=== PATIENT | male | born 2000 | race Caucasian/White ===

== ENCOUNTER 2022-11-02 13:31 | Emergency (ER) | payer OTHER, SELFPAY ==
[2022-11-02 13:43] VITALS: BP 131/73; PULSE 105; RESP 16; TEMP 37.4; O2SAT 99
--- NOTE | 2022-11-02 14:43 | ED.GENADULT ---
HPI - General Adult General Chief complaint: Extremity Injury, Upper Stated complaint: injured finger left hand Source: patient Mode of arrival: ambulatory Limitations: no limitations History of Present Illness HPI narrative: Patient presents for evaluation of a laceration to the left index finger. Symptom onset just prior to arrival. He cut himself on a mandoline. He states the pain has improved since the time of his arrival. He denies loss of range of motion or paresthesias. Last tetanus was in April of this year. He is not diabetic. He does not smoke. He is right-hand dominant. Related Data Home Medications Medication Instructions Recorded Confirmed albuterol 11/02/22 Allergies Allergy/AdvReac Type Severity Reaction Status Date / Time No Known Allergies Allergy Verified 11/02/22 13:36 Review of Systems Review of Systems: CONSTITUTIONAL: Denies fever, chills, or sweats. EYES: Denies visual changes, redness, or discharge. ENT: Denies rhinorrhea, congestion, sore throat, or otalgia. CARDIOVASCULAR: Denies chest pain, palpitations, or edema. RESPIRATORY: Denies cough or dyspnea. GASTROINTESTINAL: Denies abdominal pain, nausea, vomiting, or diarrhea. GENITOURINARY: Denies dysuria or hematuria. SKIN: Reports laceration to left index finger. MUSCULOSKELETAL: Denies back pain, joint pain, or myalgia. NEUROLOGIC: Denies headache, numbness, dizziness, or weakness. PSYCHIATRIC: Denies anxiety or depression. [facility] Past Medical History Medical History Asthma Surgical History Surgical History Hx of tonsillectomy Family History Family History Father Hypertension Grandparent Hypertension Carcinoma of colon, Onset Age: 84 Mother Patient's mother is in good health Social History Social History Smoking status: Never smoker Second hand tobacco smoke exposure: No Alcohol intake: never Substance use: never Gender identity (if verbalized by the patient): Male Spiritual care concerns: No Exam Narrative: GENERAL: Well-appearing, well-nourished, and in no acute distress. HEAD: Normocephalic, atraumatic. EYES: PERRLA and EOMI. ENT: Nares clear, no rhinorrhea or epistaxis. Mucous membranes moist. Oropharynx without tonsillar hypertrophy exudate or other lesions. Bilateral TMs pearly price nonbulging NECK: Supple. No adenopathy or masses. No carotid bruits or JVD CHEST: Clear to auscultation. No respiratory distress. No wheezes rales or rhonchi HEART: Regular rate and rhythm. No murmur heard. Normal peripheral pulses. ABDOMEN: Soft, nontender, nondistended, normal active bowel sounds. EXTREMITIES: Normal range of motion. No edema. SKIN: Approximately 1 cm laceration to distal phalanx of 2nd digit of left hand in flap formation. NEURO: No focal deficits. Alert and oriented x3. PSYCH: Normal mood and affect. Course Course Emergency Course: This is a 21-year-old male who presented for evaluation of laceration to the left index finger. Wound was cleansed thoroughly laceration was closed with 2 sutures and dermabond which was only applied to small portion of end of laceration. Pt tolerated well. Advised on wound care. Follow up with primary provider and go to the ER for evidence of infection. Pt in agreement with plan of care. Level of Care: Express Care Visit Vital Signs Vital signs: Vital Signs Temperature 37.4 C 11/02/22 13:43 Pulse Rate 105 H 11/02/22 13:43 Respiratory Rate 16 11/02/22 13:43 Blood Pressure 131/73 11/02/22 13:43 Pulse Oximetry 99 11/02/22 13:43 Oxygen Delivery Room Air 11/02/22 13:43 Temperature 37.4 C 11/02/22 13:43 Pulse Rate 105 H 11/02/22 13:43 Respiratory Rate 16 11/02/22 1
== END 2022-11-02 15:35 | disposition home or self-care (01) ==
PROVIDERS: Emergency Provider Nurse Practitioner; PCP Internal Medicine
DX: S61.211A Laceration without foreign body of left index finger without damage to nail, initial encounter (principal); W27.8XXA Contact with other nonpowered hand tool, initial encounter; J45.909 Unspecified asthma, uncomplicated
CPT/HCPCS: 12001; 99212; G0463

== ENCOUNTER 2023-11-28 11:00 | Emergency (ER) | payer OTHER, SELFPAY ==
[2023-11-28 11:11] VITALS: BP 123/82; PULSE 150; RESP 16; TEMP 38.3; O2SAT 99
--- NOTE | 2023-11-28 11:19 | ED.SKABFB ---
HPI - Skin/Abscess/Foreign Bdy General Chief complaint: Skin/Abscess/Foreign Body Stated complaint: Cyst Time Seen by Provider: 11/28/23 11:19 Source: patient, RN notes reviewed and old records reviewed Mode of arrival: ambulatory Limitations: no limitations History of Present Illness HPI narrative: 22-year-old male to Express Care for complaint of a pilonidal cyst. Patient reports 1st being diagnosed 4 years ago through his PCP office. Patient reports being treated with antibiotics for infection twice through his PCP for this same complaint. Patient reports pain 7/10, worse while sitting. Patient also complaining of generalized chills and myalgias that began overnight. Patient tachycardic and febrile in triage. Patient denies, vomiting, dizziness, allergies. Patient able to tolerate fluids by mouth. Respirations even and nonlabored. Patient in no acute distress. Related Data Home Medications Medication Instructions Recorded Confirmed albuterol sulfate 90 mcg/actuation 1 inh inhalation QID PRN DYSPENA 11/28/23 11/28/23 aerosol inhaler Allergies Allergy/AdvReac Type Severity Reaction Status Date / Time No Known Allergies Allergy Verified 11/28/23 11:25 Review of Systems Review of Systems: All systems reviewed & are unremarkable except as noted in HPI and below Constitutional: Constitutional: Reports as per HPI, Reports body ache(s) and Reports chills Eyes: Eyes: Reports no additional eye complaints ENT: Reports system reviewed and no additional complaints, except as documented Cardiovascular: Cardiovascular: Reports no additional cardiovascular complaints, Denies chest pain and Denies dyspnea Respiratory: Respiratory: Reports no additional respiratory complaints, Denies cough and Denies dyspnea Musculoskeletal: Musculoskeletal: Reports no additional musculoskeletal complaints Integumentary/Breasts: Skin/Breast: Reports as per HPI and Reports wounds ( pilonidal cyst) Neurologic: Reports system reviewed and no additional complaints, except as documented Psychiatric: Psychiatric: Reports no additional psychiatric complaints [facility] Past Medical History Medical History Asthma Surgical History Surgical History Hx of tonsillectomy Family History Family History Father Hypertension Grandparent Hypertension Carcinoma of colon, Onset Age: 84 Mother Patient's mother is in good health Social History Social History Smoking status: Never smoker Second hand tobacco smoke exposure: No Alcohol intake: never Substance use: never Gender identity (if verbalized by the patient): Male Spiritual care concerns: No Comments At the time of my signature, I reviewed and agree with the nursing past medical, surgical, social, and family history. There is no relevant family history pertinent to the patient complaint. Exam Const: General: cooperative, no acute distress, alert, ill appearing acutely, tired appearing, uncomfortable and well nourished Nutritional Appearance: well nourished Orientation/consciousness: patient oriented x3 Limitations: no limitations HENMT: Head: normal to inspection Ears: external ears normal Face/Nose/Sinus: Normal external nose present, Normal nares present, normal facial exam, No erythema and No edema Face and sinus: normal facial exam, no erythema and no edema Mouth: Yes Normal oral and palatal mucosa present Eyes: General: appearance normal, both eyes and all related structures Neck: Neck: normal visual inspection, full ROM and no meningeal signs Lymphatic: no lymphadenopathy noted and no lymphedema noted Chest: Chest palpation & inspection: normal inspection of the chest Resp: Effort & Inspection: normal respiratory eff
== END 2023-11-28 11:59 | disposition short-term general hospital (02) ==
PROVIDERS: Emergency Provider Nurse Practitioner Family; PCP Internal Medicine
DX: L05.01 Pilonidal cyst with abscess (principal); J45.909 Unspecified asthma, uncomplicated
CPT/HCPCS: 99212; G0463

== ENCOUNTER 2023-11-28 12:19 | Inpatient (IN) | payer OTHER, SELFPAY ==
[2023-11-28 13:06] VITALS: BP 97/53; PULSE 126; RESP 18; TEMP 38.1; O2SAT 98
[2023-11-28] MEDS: HYDROcodone/acetaminophen (*CRX) 5-325 MG TABLET 1 TAB PO (13:59)
[2023-11-28] MEDS: SODIUM CHLORIDE 0.9% IV 2,400 ML/1,000 ML BAG 999 ML IV CONT ×2 (14:14→15:30)
[2023-11-28] MEDS: LIDO 1%/EPINEPHRINE 1:100,000 20 ML VIAL 10 ML INFILTRATE (14:18)
--- NOTE | 2023-11-28 14:29 | ED.SKABFB ---
HPI - Skin/Abscess/Foreign Bdy General Chief complaint: Skin/Abscess/Foreign Body Stated complaint: pylonidal cyst Time Seen by Provider: 11/28/23 13:35 History of Present Illness HPI narrative: patient is a 22-year-old male who presents ER with pilonidal abscess. Has history of pilonidal multiple years ago. It was drained in an office setting. He reports pain returned over the last 4 days. He has developed fever. He has had no drainage. He has not been on any antibiotics. Upon presentation in the ER patient has a blood pressure in the 90s and is tachycardic and febrile. Related Data Home Medications Medication Instructions Recorded Confirmed albuterol sulfate 90 mcg/actuation 1 inh inhalation QID PRN DYSPENA 11/28/23 11/28/23 aerosol inhaler Allergies Allergy/AdvReac Type Severity Reaction Status Date / Time No Known Allergies Allergy Verified 11/28/23 18:41 Review of Systems Review of Systems: All systems reviewed & are unremarkable except as noted in HPI and below Constitutional: Constitutional: Denies chills, Reports fatigue and Reports fever(s) ENT: Reports system reviewed and no additional complaints, except as documented Cardiovascular: Cardiovascular: Reports no additional cardiovascular complaints Respiratory: Respiratory: Reports no additional respiratory complaints Musculoskeletal: Musculoskeletal: Reports no additional musculoskeletal complaints Integumentary/Breasts: Comments: Pilonidal abscess [facility] Past Medical History Medical History Asthma Surgical History Surgical History Hx of tonsillectomy Family History Family History Father Hypertension Grandparent Hypertension Carcinoma of colon, Onset Age: 84 Mother Patient's mother is in good health Social History Social History Smoking status: Never smoker Second hand tobacco smoke exposure: No Alcohol intake: never Drinks per week: 4 Substance use: never Do You Feel Safe in your Home?: Yes Lack of Transportation: No Lack of Food: Never True Current Housing: I Have Housing Concerned About Future Housing: No Difficulty Paying Gas/Electric Bills: No Difficulty Paying for Meds: No Currently Unemployed: No Education: Associate Degree Difficulty w/ Childcare or Family Care: No Gender identity (if verbalized by the patient): Male Spiritual care concerns: No Exam Narrative: GENERAL: Well-appearing, well-nourished, and in no acute distress. HEAD: Normocephalic, atraumatic. ENT: Mucous membranes moist. CHEST: Clear to auscultation. No respiratory distress. HEART: Regular rate and rhythm. Normal peripheral pulses. EXTREMITIES: Normal range of motion. No edema. SKIN: Warm, dry, no rash. swelling over the gluteal cleft with small defect consistent with scarring from previous opening a pilonidal. No overt cellulitis. NEURO: Alert and oriented x3. PSYCH: Normal mood and affect. Course Course Emergency Course: Patient given 30 milliliter/kilogram bolus of IV fluid. Blood was cultured as was the wound. Patient started on Zosyn at the recommendation of General surgery. The wound was incise and drain. Patient will be admitted for observation. Vital Signs Vital signs: Vital Signs Temperature 100.6 F H 11/28/23 13:06 Pulse Rate 126 H 11/28/23 13:06 Respiratory Rate 18 11/28/23 13:06 Blood Pressure 97/53 L 11/28/23 13:06 Pulse Oximetry 98 11/28/23 13:06 Temperature 98.7 F 11/28/23 20:06 Pulse Rate 106 H 11/28/23 20:06 Respiratory Rate 18 11/28/23 20:06 Blood Pressure 117/73 11/28/23 20:06 Pulse Oximetry 100 11/28/23 20:06 Oxygen Delivery Room Air 11/28/23 17:24 Procedures Abscess I/D pilonidal: Date of Incision:
[2023-11-28 14:34] LABS: Basophils Percent Auto 0.4 % (0.2-1.2); Eosinophils Percent Auto 0.1 % (0-4.4); Hematocrit 38.8 % (42.0-52.0); Hemoglobin 13.1 g/dL (14.0-18.0); Immature Granulocyte Absolute 0.04 K/mm3 (0.00-0.031); Immature Granulocyte Percent A 0.4 % (0-0.5); Lymphocytes Absolute Auto 0.84 K/mm3 (0.9-3.2); Lymphocytes Percent Auto 8.4 % (18.3-44.2); Mean Corpuscular HGB Conc 33.8 g/dl (32-36); Mean Corpuscular Hemoglobin 31.4 pg (26-34); Monocytes Absolute Auto 0.8 K/mm3 (0.1-0.6); Monocytes Percent Auto 7.5 % (2.6-8.5); Neutrophils Absolute Auto 8.3 K/mm3 (1.3-6.7); Neutrophils Percent Auto 83.2 % (45.5-73.1); Platelet Count Result 170 k/mm3 (150-375); Red Blood Count 4.17 M/mm3 (4.6-6.20); Red Cell Distribution Width 12.8 % (11.5-14.5)
[2023-11-28 14:43] LABS: Lactic Acid Reflex 0.7 mmol/L (0.7-2.0)
[2023-11-28 14:44] LABS: INR 1.2; Partial Thromboplastin Time 28.3 Seconds (22.3-36.8); Prothrombin Time 15.1 Seconds (11.1-14.7)
[2023-11-28 14:47] LABS: Alanine Aminotransferase 14 U/L (6-50); Albumin Level 4.4 g/dL (3.5-5.1); Alkaline Phosphatase 73 U/L (38-126); Anion Gap 11 mmol/L (4-12); Aspartate Amino Transferase 19 U/L (17-59); Bilirubin,Total 0.9 mg/dL (0.2-1.3); Blood Urea Nitrogen 15 mg/dL (9-20); Calcium 8.9 mg/dL (8.4-10.2); Carbon Dioxide 25 mmol/L (22-30); Chloride 102 mmol/L (98-107); Estimated CRCL calculation 132 ml/min; Estimated Glomerular Filt Rate > 60; Glucose 78 mg/dL (65-110); Potassium 3.8 mmol/L (3.4-5.0); Sodium 138 mmol/L (137-145)
[2023-11-28 15:34] VITALS: BP 120/61; PULSE 129; RESP 18; TEMP 37.8; O2SAT 97
--- NOTE | 2023-11-28 15:35 | PC.NURSE ---
I & D per Dr. Owusu, wound packed with Iodaform gauze, [address] at site. Pt tolerated well
[2023-11-28 15:45] VITALS: BP 116/60; PULSE 127; RESP 20; TEMP 37.8; O2SAT 100
[2023-11-28] MEDS: PIPERACILLN/TAZ 3.375GM/NS50ML 3.375 GM/50 ML BAG IVPB ×2 (16:32→23:25)
--- NOTE | 2023-11-28 16:47 | PC.NURSE ---
No change in assessment. Pt resting prone position for comfort.
[2023-11-28 16:51] VITALS: BP 112/59; PULSE 112; RESP 20; TEMP 37.8; O2SAT 97
--- NOTE | 2023-11-28 16:57 | PC.NURSE ---
Pt received total of 2400 normal saline sepsis protocol fluids. RN consulted Collin RN concerning difficulty in charting exact intake. Instructed to write a note
--- NOTE | 2023-11-28 17:24 | ADMGEN ---
This patient, Raulito Epstein, was admitted to Medical Room 241-01. Patient/family oriented to hospital policies and general routines including ID bracelet, bed and alarms, visiting hours, pain management, procedures, bathroom and other care routines, personal items, smoking policy, room service/diet, and visiting hours. Information on how to activate the Rapid Response Team has been discussed. Patient/Family are encouraged to report perceived risks to care and to ask questions if they do not understand what they are told or what they should do.
[2023-11-28 17:32] VITALS: BMI 24.5
--- NOTE | 2023-11-28 18:28 | PM.IMHP ---
H&P: HPI History of Present Illness Date/Time: 11/28/23 18:28 Chief Complaint: Pilonidal abscess and cellulitis Narrative: Patient is a 22-year-old male who presented to the emergency room with a 4 day history of worsening pain in the upper midline gluteal cleft. He had a known pilonidal cyst and actually was seen as an outpatient by Dr. Oliveira a couple years ago. He has not had definitive management of his pilonidal cyst. He had some subjective fevers and chills at home earlier today. In the emergency room he was febrile with tachycardia and relative hypotension. Received an IV fluid bolus in the emergency room and stabilized. He is still mildly tachycardic. He met criteria for sepsis and admission. He did have incision and drainage by the emergency room physician of the pilonidal abscess. It was packed and he was admitted to the surgical floor. He was started on Zosyn for IV antibiotics. Review of Systems Review of Systems: The remainder of the review of systems to include constitutional, HEENT, cardiovascular, respiratory, GI, , integumentary, musculoskeletal, endocrine, immunologic, hematologic, psychiatric, and neurologic are all negative except for which is mentioned above in the HPI. [facility] Past Medical History Medical History Asthma Surgical History Surgical History Hx of tonsillectomy Family History Family History Father Hypertension Grandparent Hypertension Carcinoma of colon, Onset Age: 84 Mother Patient's mother is in good health Social History Social History Smoking status: Never smoker Second hand tobacco smoke exposure: No Alcohol intake: never Drinks per week: 4 Substance use: never Do You Feel Safe in your Home?: Yes Lack of Transportation: No Lack of Food: Never True Current Housing: I Have Housing Concerned About Future Housing: No Difficulty Paying Gas/Electric Bills: No Difficulty Paying for Meds: No Currently Unemployed: No Education: Associate Degree Difficulty w/ Childcare or Family Care: No Gender identity (if verbalized by the patient): Male Spiritual care concerns: No Meds Home Medications and Allergies Home Medications Medication Instructions Recorded Confirmed Type albuterol sulfate 90 mcg/actuation 1 inh inhalation QID PRN DYSPENA 11/28/23 11/28/23 History aerosol inhaler Allergies Allergy/AdvReac Type Severity Reaction Status Date / Time No Known Allergies Allergy Verified 11/28/23 11:25 Vital Signs Vital Signs - 24 hr 11/28/23 13:06 11/28/23 15:34 11/28/23 15:45 Temperature 38.1 C H 37.8 C H 37.8 C H Pulse Rate 126 H 129 H 127 H Respiratory Rate 18 18 20 Blood Pressure 97/53 L 120/61 116/60 Pulse Oximetry 98 97 100 11/28/23 16:51 Temperature 37.8 C H Pulse Rate 112 H Respiratory Rate 20 Blood Pressure 112/59 L Pulse Oximetry 97 Exam Const: General: comfortable and no acute distress HENMT: Ears: TM's normal bilaterally Face/Nose/Sinus: Normal nares present Mouth: Yes moist mucous membranes Eyes: General: appearance normal, both eyes and all related structures Sclera: sclerae normal Pupils: Equal, round and reactive pupils present EOM: EOMs intact bilaterally Neck: Neck: supple and no JVD Resp: Effort & Inspection: normal respiratory effort Auscultation: clear to auscultation bilaterally Cardio: Rate: regular rate and tachycardic GI: GI Palp: Yes Soft to palpation, No Firmness to palpation present (GI), No Tenderness to palpation present (GI), No Guarding due to palpation present (GI) and No Hernia present Skin: General skin exam: normal color Other: In the gluteal cleft patient has a open draining abscess which the emergency room physician incised and drained. The
[2023-11-28] MEDS: SODIUM CHLORIDE 0.9% IV 1,000 ML 125 ML IV CONT (18:45)
[2023-11-28 20:06] VITALS: BP 117/73; PULSE 106; RESP 18; TEMP 37.1; O2SAT 100
[2023-11-29 04:04] VITALS: BP 117/71; PULSE 109; RESP 20; TEMP 36.8; O2SAT 99
[2023-11-29] MEDS: SODIUM CHLORIDE 0.9% IV 1,000 ML 125 ML IV CONT ×2 (04:29→12:28)
[2023-11-29 05:36] LABS: Basophils Percent Auto 0.4 % (0.2-1.2); Eosinophils Absolute Auto 0.1 K/mm3 (0-0.3); Eosinophils Percent Auto 1.6 % (0-4.4); Hematocrit 35.2 % (42.0-52.0); Hemoglobin 11.5 g/dL (14.0-18.0); Immature Granulocyte Absolute 0.02 K/mm3 (0.00-0.031); Immature Granulocyte Percent A 0.2 % (0-0.5); Lymphocytes Absolute Auto 1.39 K/mm3 (0.9-3.2); Lymphocytes Percent Auto 16.9 % (18.3-44.2); Mean Corpuscular HGB Conc 32.7 g/dl (32-36); Mean Corpuscular Hemoglobin 31.3 pg (26-34); Mean Corpuscular Volume 95.9 fl (80-100); Mean Platelet Volume 10.3 fl (7.4-10.4); Monocytes Absolute Auto 0.8 K/mm3 (0.1-0.6); Monocytes Percent Auto 10.1 % (2.6-8.5); Neutrophils Absolute Auto 5.8 K/mm3 (1.3-6.7); Neutrophils Percent Auto 70.8 % (45.5-73.1); Platelet Count Result 143 k/mm3 (150-375); Red Blood Count 3.67 M/mm3 (4.6-6.20); White Blood Count 8.2 K/mm3 (4.5-10.0)
[2023-11-29 05:46] LABS: Alanine Aminotransferase 11 U/L (6-50); Albumin Level 3.5 g/dL (3.5-5.1); Alkaline Phosphatase 58 U/L (38-126); Anion Gap 6 mmol/L (4-12); Aspartate Amino Transferase 20 U/L (17-59); Bilirubin,Total 0.7 mg/dL (0.2-1.3); Blood Urea Nitrogen 11 mg/dL (9-20); Calcium 8.3 mg/dL (8.4-10.2); Carbon Dioxide 25 mmol/L (22-30); Chloride 106 mmol/L (98-107); Estimated CRCL calculation 149 ml/min; Estimated Glomerular Filt Rate > 60; Glucose 97 mg/dL (65-110); Potassium 3.8 mmol/L (3.4-5.0); Sodium 137 mmol/L (137-145)
[2023-11-29] MEDS: PIPERACILLN/TAZ 3.375GM/NS50ML 3.375 GM/50 ML BAG IVPB ×3 (05:59→18:50)
[2023-11-29 08:55] VITALS: O2SAT 98
--- NOTE | 2023-11-29 11:19 | WPDPN ---
Progress Note: A&P Assessment and Plan (1) Pilonidal cyst with abscess: Code(s): L05.01 - Pilonidal cyst with abscess Status: Acute Assessment and Plan: Patient sepsis parameters are better. He has much less pain. Unfortunately the small incision made on initial incision drainage emergency room was not adequate to widely drain the abscess. He still is getting quite a bit of purulent drainage. He will need to go to the operating room tomorrow for formal incision and drainage of the abscess in the operating room with wider drainage and a larger incision to aid with packing of the abscess cavity properly. Keep on IV antibiotics for now. Await culture results. He can have a diet today and be made NPO in the morning again. Subjective Date/time seen: 11/29/23 11:19 Interval history: Patient feels much better today in regards to the pain from his pilonidal abscess. It continues to drain. The cover dressing was changed twice last evening. White blood count is 8000 today. No fever now. Tachycardia is improved he is now no low 100s around 105 for his heart rate. He remains on Zosyn for IV antibiotics. Wound cultures from initial incision and drainage of the abscess is pending. Exam Skin: Other: In the upper midline gluteal cleft the 0.5cm incision made by the emergency room physician is still open. There is still copious amounts of bloody purulent fluid draining. Redness is improved but there is still significant induration. Objective Data Vital Signs Vital Signs: Vital Signs - 24 hr 11/28/23 13:06 11/28/23 15:34 11/28/23 15:45 Temperature 38.1 C H 37.8 C H 37.8 C H Pulse Rate 126 H 129 H 127 H Respiratory Rate 18 18 20 Blood Pressure 97/53 L 120/61 116/60 Pulse Oximetry 98 97 100 Oxygen Delivery 11/28/23 16:51 11/28/23 17:24 11/28/23 20:06 Temperature 37.8 C H 37.1 C Pulse Rate 112 H 106 H Respiratory Rate 20 18 Blood Pressure 112/59 L 117/73 Pulse Oximetry 97 100 Oxygen Delivery Room Air 11/28/23 20:24 11/29/23 04:04 11/29/23 08:55 Temperature 36.8 C Pulse Rate 109 H Respiratory Rate 20 Blood Pressure 117/71 Pulse Oximetry 99 98 Oxygen Delivery Room Air Room Air 11/29/23 08:30 Temperature Pulse Rate Respiratory Rate Blood Pressure Pulse Oximetry Oxygen Delivery Room Air Intake/Output Intake/Output: Intake & Output 11/26/23 11/27/23 11/28/23 11/29/23 23:59 23:59 23:59 23:59 Intake Total 340 1240 Balance 340 1240 Meds/Results Medications: Active Medications Generic Name Dose Route Start Last Admin Trade Name Freq PRN Reason Stop Dose Admin Acetaminophen 650 mg 11/28/23 16:09 Acetaminophen 325 Mg Tablet PO Q4H PRN Mild Pain (1-3) or Fever Hydrocodone Bitart/Acetaminophen 1 tab 11/28/23 16:09 Hydrocodone/Acetaminophen (*Crx) 5-325 Mg Tablet PO Q4H PRN Pain Rated 4-6 Piperacillin/Tazobactam/Dextrose 3.375 gm in 50 mls @ 100 mls/hr 11/28/23 23:00 11/29/23 06:29 Zosyn 3.375 Gm/Ns 50 Ml IVPB Infused Q6HR MELI Infusion Sodium Chloride 1,000 mls @ 125 mls/hr 11/28/23 16:10 11/29/23 04:29 Normal Saline Iv IV CONT 125 mls/hr .Q8H MELI Administration Morphine Sulfate 4 mg 11/28/23 16:09 Morphine Sulfate (*Crx) 4 Mg/Ml Inj IV PUSH Q2H PRN Pain Rated 7-10 Ondansetron HCl 4 mg 11/28/23 16:09 Ondansetron Inj 4 Mg/2 Ml Vial IV PUSH Q4H PRN Nausea Labs Labs: Laboratory Results - last 24 hr 11/28/23 11/29/23 14:20 04:38 WBC 10.0 8.2 RBC 4.17 L 3.67 L Hgb 13.1 L 11.5 L Hct 38.8 L 35.2 L MCV 93.0 95.9 MCH 31.4 31.3 MCHC 33.8 32.7 RDW 12.8 13.0 Plt Count 170 143 L MPV 10.0 10.3 Immature Gran % (Auto) 0.4 0.2 Neut % (Auto) 83.2 H 70.8 Lymph % (Auto) 8.4 L 16.9 L Barbour % (Auto) 7.5 10.1 H Eos % (Auto) 0.1 1.6 Baso % (Auto) 0.4 0.4 Lymph # (Auto) 0.84 L 1.39 Barbour # (Auto) 0.8 H 0.8 H Eos # (Auto)
[2023-11-29 13:59] VITALS: BP 120/73; PULSE 100; RESP 16; TEMP 36.4; O2SAT 100
[2023-11-29] MEDS: ACETAMINOPHEN 325 MG TABLET 650 MG PO (21:28)
[2023-11-29 22:00] VITALS: BP 126/73; PULSE 90; RESP 20; TEMP 36.7; O2SAT 99
[2023-11-30] VITALS (9 sets, daily range): BP systolic 102–124; BP diastolic 62–81; PULSE 77–106; RESP 12–20; TEMP 36.1–36.7; O2SAT 99–100
[2023-11-30] MEDS: PIPERACILLN/TAZ 3.375GM/NS50ML 3.375 GM/50 ML BAG IVPB ×2 (00:20→06:27)
[2023-11-30] MEDS: SODIUM CHLORIDE 0.9% IV 1,000 ML 125 ML IV CONT (00:20)
--- NOTE | 2023-11-30 08:08 | WPDHPUPDATE1 ---
History and Physical Update Update Date/Time: 11/30/23 08:08 History and Physical has been reviewed, including an updated exam of the patient. There are NO changes in the patient's condition. Risks, benefits, and alternatives have been discussed and questions answered. Patient agrees to proceed with procedure.
--- NOTE | 2023-11-30 08:26 | PC.NURSE ---
PT off unit for Surgery
[2023-11-30] MEDS: LACTATED RINGERS 1,000 ML 30 ML IV CONT (09:09)
--- NOTE | 2023-11-30 09:15 | P.OP_ITS ---
Procedure Note - Detailed Date of Procedure 11/30/23 Pre-op Diagnosis Sepsis/Pilonidal Cyst Post-op Diagnosis Same Procedure Performed Incision and drainage of pilonidal abscess Surgeon Steffen Staples MD Curtain Inspector OMER Gonzalez Anesthesia General Indications Patient is a 22-year-old white male presented to the emergency with a 4 day history of worsening pain over his tailbone. He was found have a very large pilonidal abscess and initial incision drainage was performed in the emergency room by the emergency room physician. Copious amounts of pus drained. Small amount of packing was placed. He was then seen on the floor in September was difficult to repack to the small incision. He continues to have purulent drainage coming from the wound and so he presents now for formal incision and drainage of the abscess in the operating room under an anesthetic. Findings Patient had large pilonidal abscess measuring about 4x3cm. It was a simple abscess without tracking sinus tracts. It did extend superior to the top of the upper midline gluteal cleft and upper buttock region. Description of Procedure After informed consent was obtained patient brought to the operating room was pl aced on the right lateral decubitus position on the operating table and IV sedation was administered by anesthesia. The area the upper midline gluteal cleft and lower back region was then prepped and draped usual sterile fashion. A time-out was then performed correctly identifying the patient as well as procedure to be performed. He was already on scheduled IV antibiotics. I then proceeded to anesthetize the area utilizing 1% lidocaine mixed with 0.5% Marcaine with epinephrine. An 11 blade scalpel was then used to open the existing incision until was 3cm in length. The the incision extended cephalad from the initial incision. I placed my finger into the abscess cavity and a little bit more pus drained. I then palpated the whole extent of the abscess cavity is approximately 4x3cm. There is no tracking of the abscess cavity lateral. It seemed to track mostly cephalad towards the upper midline gluteal cleft and the upper buttock regions. I then irrigated out the abscess counts copious amounts sterile saline solution. Hemostasis in the skin edges was achieved electrocautery. I then packed the wound tightly with half-inch iodoform gauze. Hemostasis was good. The patient tolerated the procedure well no complications. All sponges, needles, and instrument counts were correct at the end procedure. EBL was _5__cc. The patient was awakened and taken to recovery in stable and satisfactory condition. Implants None Estimated Blood Loss 5 Drains No Packing Yes (1/2inch iodoform gauze) Pathology None sent Complications No immediate complications Condition Stable Disposition PACU [facility] Billing Surgery - Charge Forward: Surgery Billing
[2023-11-30] MEDS: LIDO 1%/EPINEPHRINE/PF 1:200,000 30 ML VIAL 60 ML XX (09:16)
--- NOTE | 2023-11-30 09:28 | PM.DS ---
DS: Admitting Diagnosis Discharge Date November 30, 2023 Admitting Diagnosis Pilonidal abscess with sepsis DS: Discharge Diagnosis Discharge Diagnosis (1) Pilonidal cyst with abscess: Code(s): L05.01 - Pilonidal cyst with abscess Status: Acute (2) Sepsis: Code(s): A41.9 - Sepsis, unspecified organism Status: Acute DS: Summary Hospital Course Reason for hospitalization: Pilonidal abscess with sepsis Hospital Course: Patient presented to the emergency room with a four-day history of worsening pain in his tailbone. He had a prior history of a pilonidal cyst a couple years ago. Upon evaluation emergency room his mood have a large fluctuant area in his tailbone consistent with a pilonidal abscess. He was also tachycardic and had some relative hypotension. He met criteria for sepsis protocol was me started on IV antibiotics and IV fluid bolus was given to the patient which responded to. The emergency room physician performed a limited incision and drainage of the abscess and copious amounts of pus drained. Culture of the pus was sent to microbiology. Patient was admitted to the surgical floor and kept on Zosyn for IV antibiotics. I then sewn evaluate the patient patient had a small incision which made it difficult to try to pack the wound and there was copious amounts of pus stool draining from the wound. He was kept on IV antibiotics and his white blood cell count was still normal around 10,000. It decreased the next day he was afebrile. Because of the continued drainage of pus from the difficulty in trying to pack the wound the small incision he was then taken to the operating room for formal incision and drainage of the abscess cavity under a anesthetic. This was done and it allowed me to then make a 3cm incision to open toe abscess cavity. Details of procedure can be found his operative note. Postoperatively he was transferred to the recovery room which did well and was transferred back to surgical floor with packing in place. He was doing very well with minimal pain. He was tolerating a regular diet. He was then switched from Zosyn for IV antibiotics to Augmentin for antibiotic therapy. He is doing well enough on the of his procedure that he can be discharged home with instructions for wound packing and an oral antibiotic. Status at Discharge Cognitive/behavioral status at discharge: Normal Functional status at discharge: independent ambulation Overall status at discharge: patient is back to baseline Time Spent with Patient Time attestation: Total time spent providing and/or coordinating discharge services: Time spent: Less than 30 minutes Exam Skin: Other: Upper midline gluteal cleft with 3cm midline incision leading to a 4cm abscess cavity in the subcutaneous tissues. Wound is now clean without any pus drainage. Resolving induration minimal redness. DS: Data Data Completed and Pending Labs on day of discharge: Preliminary micro results at discharge 11/28/23 16:35 Wound Culture - Preliminary Abscess 11/28/23 16:35 Blood Culture - Preliminary Blood 11/28/23 16:35 Blood Culture - Preliminary Blood Discharge Plan Discharge Attending physician on discharge: Steffen Staples Discharging Clinician: Steffen Staples Anticipated Discharge Date/Time: 11/30/23 15:00 Patient Disposition: Home, Self-Care Activity: may shower Diet: regular Wound Care Instructions: other - see discharge instructions Discharge Instructions: Patient leave dressing in place for today. May remove the top portions of the dressing and then get the packing wet in a shower and then removed the packing. 1/2inch iodoform gauze to be repacked into the abscess cavity right patient's family member. Cover the wound with dry gauze. Change packing once a day. Discharge patient home with Q-tips, 1/2inch iodoform gauze, 4x4 gauze, ABD pads, and Medipore tape. Patient to call office and make appointm
--- NOTE | 2023-11-30 09:40 | PC.NURSE ---
Pt returned to unit
== END 2023-11-30 14:32 | disposition home or self-care (01) | DRG 602 ==
LOC: ANHED 13:49 → ANH2MED 17:00
PROVIDERS: Admitting Provider Surgery; Emergency Provider Emergency Medicine; PCP Internal Medicine; Visit Provider Surgery
PROC: 0J990ZZ Drainage of Buttock Subcutaneous Tissue and Fascia, Open Approach (ICD-10-PCS; principal; 2023-11-30 08:00)
DX: L05.01 Pilonidal cyst with abscess (principal); A41.9 Sepsis, unspecified organism
CPT/HCPCS: 10080; 36415; 80053; 83605; 85025; 85610; 85730; 86140; 87040; 87070; 87205; 96365; 99212; 99285; A9270; G0378; G0463; J2250; J2543; J2704; J3010; J7030; J7120

== ENCOUNTER 2024-03-22 00:29 | Day surgery (SDC) | payer OTHER, SELFPAY ==
[2024-03-15 15:00] VITALS: BMI 23.8
--- NOTE | 2024-03-15 15:04 | PC.NURSE ---
Report to the Outpatient Waiting Room, entrance under the green pavilion located off [facility], at time _0700_ on date _[id number]_. Planned Procedure Time: _0900_.? Time changes happen often and if your time is changed the preop area will call you the afternoon before. - You and your visitor will be asked to self-screen and do not enter if you have any COVID symptoms. Please call surgeon if you need to reschedule. - A mask is optional within the hospital at this time. Patients may have clear liquids (water, carbonated beverages, clear teas, apple juice) until 3 hours prior to surgery with a maximum of 20 ounces. - No food from midnight until time of surgery and no smoking. This includes no chewing gum, candy or mints. Take only the following medications with a SIP of water on the morning of surgery: ____Albuterol if needed. DO NOT STOP ANY OF YOUR OTHER PRESCRIPTION MEDICATIONS PRIOR TO SURGERY EXCEPT THE FOLLOWING Medications to discontinue per physician ___None Date to take last dose Please no make-up, nail ivorian, hairspray, perfume, deodorant, or body powder the day of surgery.? No jewelry (including any body piercings) or valuables the day of surgery, leave them at home.? Please take a shower or bath the night before, or the morning of, surgery with an antibacterial soap.? Wear comfortable, loose fitting clothing.? - Jewelry must be removed prior to entering the operating room.? Rings and piercings that are not removed may be cut off. - The hospital will not accept responsibility for valuables.? - Please leave all valuables, including medications, at home the day of surgery. If you are going home after surgery, a licensed truck driver salesperson must drive you home.? - NO public transportation without another adult if you receive anesthesia. - We recommend that an adult stay with you for 24 hours following discharge. - We also recommend that you do not drive, make important decision, drink alcoholic beverages, or take any drugs that were not prescribed by your health care provider for at least 24 hours after your discharge time. Follow any additional instructions given to you from your surgeon. Telephone instructions given to __Jace__and asked if any additional questions and then verbalized understanding. Patient advised to call surgeon office or pre surgery nurse liaison [phone] if any additional questions.
[2024-03-22] VITALS (8 sets, daily range): BP systolic 111–125; BP diastolic 67–81; PULSE 81–102; RESP 16–18; TEMP 36.6–36.7; O2SAT 99–100; BMI 23.8
--- NOTE | 2024-03-22 07:34 | P.PNAN_ITS ---
Anes - Initial Pre Proc Eval Procedure: Operation Date: 03/22/24 09:00 Proposed Procedures p Pilonidal Cystectomy- Extensive - Steffen Staples MD Date/Time: 03/22/24 07:34 Surgeon: Steffen Staples MD Pre Op Diagnosis: pilonidal cyst Patient Data Age: 23 Gender: M Height: 1.8 m Weight: 77.3 kg Allergies Allergy/AdvReac Type Severity Reaction Status Date / Time No Known Allergies Allergy Verified 03/15/24 14:59 Home Medications ?Medication ?Instructions ?Recorded ?Confirmed ?Type albuterol sulfate 90 mcg/actuation 1 inh inhalation QID PRN DYSPENA 01/19/24 03/15/24 Rx aerosol inhaler #8.5 grams Patient hx anesthesia problems: none Family hx anesthesia problems: none Results Review: All pre-operative results and documents have been reviewed as part of the pre- operative evaluation. [facility] Past Medical History Medical History Asthma Surgical History Surgical History Hx of tonsillectomy Status post incision and drainage pilonidal abscess 11/29/23 Steffen Staples MD Family History Family History Father Hypertension Alcoholism Anxiety and depression Grandparent Hypertension Carcinoma of colon, Onset Age: 84 Cancer Alcoholism Heart disease Mother Patient's mother is in good health Sibling Anxiety and depression Social History Social History Smoking status: Never smoker Second hand tobacco smoke exposure: No Alcohol intake: never Drinks per week: 4 Substance use: never Do You Feel Safe in your Home?: Yes Lack of Transportation: No Lack of Food: Never True Current Housing: I Have Housing Concerned About Future Housing: No Difficulty Paying Gas/Electric Bills: No Difficulty Paying for Meds: No Currently Unemployed: No Education: Associate Degree Difficulty w/ Childcare or Family Care: No Gender identity (if verbalized by the patient): Male Spiritual care concerns: No Anes - Eval Final PreProcedure Day of Procedure 03/22/24 07:34 Patient weight: normal Heart: regular rate and rhythm Lungs: clear to auscultation Airway: Mallampati scale class II Neurological: alert and oriented Last oral intake: >/= 8 hours ASA classification: II Emergent: no Anesthetic plan: proceed Anesthesia type and monitoring: general ETT and standard monitoring Results Review: All pre-operative results and documents have been reviewed as part of the pre- operative evaluation. Informed Consent: The patient's anesthetic plan and its attendant risks and benefits were discussed with the patient/family/POA. Questions were solicited and answers provided to the satisfaction of the patient/family/POA.
[2024-03-22] MEDS: LACTATED RINGERS 1,000 ML 30 ML IV CONT (07:40)
--- NOTE | 2024-03-22 08:54 | WPDHPUPDATE1 ---
History and Physical Update Update Date/Time: 03/22/24 08:54 History and Physical has been reviewed, including an updated exam of the patient. There are NO changes in the patient's condition. Risks, benefits, and alternatives have been discussed and questions answered. Patient agrees to proceed with procedure.
[2024-03-22] MEDS: LIDO 1%/EPINEPHRINE 1:100,000 50 ML VIAL 30 ML INFILTRATE (09:05)
[2024-03-22] MEDS: BUPivacaine HCL 0.5% 10 ML AMP 30 ML INFILTRATE (09:05)
[2024-03-22] MEDS: ceFAZolin 2 GM/D5W 50 ML 2 GM/50 ML BAG IVPB (09:05)
[2024-03-22] MEDS: KETOROLAC 30 MG/ML VIAL (*BKC) IV PUSH ×2 (09:57→10:02)
[2024-03-22] MEDS: BACITRACIN OINTMENT 15 GM TUBE 1 APPLIC TOPICAL (10:03)
--- NOTE | 2024-03-22 10:45 | W.PM.PROC2 ---
Procedure Note - Detailed Date of Procedure 03/22/24 Pre-op Diagnosis Pilonidal cyst Post-op Diagnosis Same Procedure Performed Extensive pilonidal cystectomy. 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 A couple of months ago presented with a infected pilonidal cyst with abscess. He had to have incision and drainage of the abscess in the office. Acute infection has resolved and now that he has graduated he presents for an elective pilonidal cystectomy to prevent recurrences of infection of the pilonidal cyst. Findings Patient is single large pit in the upper midline gluteal cleft about the midportion of the cleft. There is underlying chronic scarring around the cyst from the prior infection. There is no involvement of the lower 3rd of the upper midline gluteal cleft in the perianal region. Description of Procedure After informed consent was obtained patient was brought to the operating room was placed under general endotracheal anesthesia and then turned in the prone bubba-knife position on operating table. Great care was taken make sure all the pressure points were well padded. The area the lower back and perianal an upper midline gluteal cleft region was then prepped and draped usual sterile fashion. Time-out was then performed correctly identifying the patient as well as procedure to be performed. He was given perioperative IV antibiotics. I then proceeded to make a elongated elliptical incision in the upper midline gluteal cleft. It was centered on the midportion of the cleft where the prior scar from the drainage of the abscess was noted and there was a pilonidal cyst pit in the area. Dissection was carried sharply down to the dermis the skin and subcutaneous tissues. Electrocautery was then used to dissect down through the subcu tissues all the way down to the presacral fascia circumferentially around the ellipse of tissue. I included all the chronic scarred tissue with the ellipse to be excised and was dissected down into normal appearing non scarred subcutaneous tissue. Once the ellipse of tissue was completely excised was sent to pathology for examination. I then irrigated with sterile saline solution and then achieved hemostasis in the wound utilizing electrocautery. Multiple layers of absorbable Vicryl sutures were used to close the subcutaneous tissues. A layered 0 Vicryl suture was used in the deepest portion subcu tissues just at the level of the presacral fascia. Two more layers of interrupted 2-0 Vicryl sutures were placed in the mid portions of subcutaneous tissues. A layer of interrupted 3-0 Vicryl sutures placed in a deep dermal layer. Lastly interrupted 3-0 nylon sutures were used in a vertical mattress fashion to approximate the edges of the skin. The incision closed easily without any tension. Incision was then cleaned and then antibiotic ointment and a sterile dressing was applied. 60cc of 1% lidocaine mixed with 0.5% Marcaine with epinephrine was injected around the incision for postoperative pain relief. The patient tolerated the procedure well no complications. All sponges, needles, and instrument counts were correct at the end procedure. EBL was _20__cc. The patient was awakened and taken to recovery in stable and satisfactory condition. Implants None Estimated Blood Loss 20 Drains No Packing No Pathology Yes (Pilonidal cyst to pathology) Complications No immediate complications Condition Stable Disposition PACU [facility] Billing Surgery - Charge Forward: Surgery Billing
--- OUTSIDE RECORDS SUMMARY | 2024-03-27 09:17 | XMS_ITS | Encounter Summary ---
Author Organization [facility] Address [address] [place] [address] Care Team Providers Care Group Captain Name Role Phone Unavailable Primary Care Provider Unavailabl e Encounter Details Date Type Department Care Team (Late st Contact Info) Description 09/05/2000 Orders Only [facility] [address], [place] [id number] ProviderAlexandr MD Social History Tobacco Use Types Packs/Day Years Used Date Smoking Tobacco: Never Assessed Sex and Gender Information Value Date Recorded Sex Assigned at Not on file Gender Identity Not on file Sexual Orientation Not on file documented as of this encounter Plan of Treatment Not on file documented as of this encounter Procedures Procedure Name Priority Date/Time Associated Diagnosis Comments GROSS EXAM PATHOLOGY CIRO 09/05/2000 8:15 AM CDT documented in this encounter Results * GROSS EXAM PATHOLOGY (09/05/2000 8:15 AM CDT) Result CASE NUMBER [id number] [facility] PATH REPORT Comment: ORDERING PHYSICIAN ??MEAGHAN TAI SPECIMEN TYPE ?Tonsils CLINICAL HISTORY ? The patient is a [id number] boy with chronic tonsillitis. GROSS DESCRIPTION ? The specimen labeled with the patient's name and tonsils is received fresh for gross examination only and consists of two egg-shaped, pink- hameed tonsils measuring 2.2 x 1.5 x 1.0 cm. and 2.0 x 1.5 x 1.0 cm. weighing approximately 4.0 gms. combined. ??On cut surface the tonsils have a cerebriform yellow-hameed appearance. ??No sections are taken. ??(CT/ lw) GROSS DIAGNOSIS ? GROSS DIAGNOSIS ??TONSILS. Unix Developer ? Jay Deleon PATHOLOGIST ?Jaison Hicks M.D. ELECTRONICALLY YUNIEL JAISON HICKS MISCELLANEOUS SAMPLES / Unknown 09/05/2000 8:15 AM CDT 09/05/2000 10:39 AM CDT Historical Provider LAB - PATHOLOGY/C YTOLOGY ORDERABLES [facility] PATH REPORT documented in this encounter Visit Diagnoses Not on filedocumented in this encounter
--- OUTSIDE RECORDS SUMMARY | 2024-03-27 09:17 | XMS_ITS | Clinical Summary ---
Author Organization [facility] Address [address] [place] [address] Care Team Providers Care Cooker Helper Name Role Phone Unavailable Primary Care Provider Unavailabl e Source Comments [facility],non-owned Affiliates and Associated Physician Practices is amultiple site organization consisting of ambulatory clinics and hospital sitesin [place], [place], [place] and [place]. This disclosure is being madepursuant to the Care Everywhere program and may not contain all information available regarding this patient. Last updated 17.[facility] Social History Tobacco Use Types Packs/Day Years Used Date Smoking Tobacco: Never Assessed Sex and Gender Information Value Date Recorded Sex Assigned at Not on file Gender Identity Not on file Sexual Orientation Not on file Plan of Treatment Health Maintenance Due Date Last Done Comments HIV SCREENING 2013 HPV VACCINE (1 - Male 3-dose series) 2013 HEPATITIS C SCREENING 12/18/2016 DTAP/TDAP/TD VACCINES (1 - Tdap) 2017 HEPATITIS B VACCINE (1 of 3 - 19+ 3-dose series) 2017 DEPRESSION SCREENING 04/07/2023 COVID-19 VACCINE (1 - 2023-2 5 season) 2023 INFLUENZA VACCINE (#1) 2023 ZOSTER VACCINE (1 of 2) 2048 HIB VACCINE Aged Out No longer eligi ble based on patient's age to complete this topic MENINGOCOCCAL VACCINE Aged Out No luz adelfo eligible based on patient's age to complete this topic PNEUMOCOCCAL VACCINE Aged Out No long er eligible based on patient's age to complete this topic
--- OUTSIDE RECORDS SUMMARY | 2024-03-27 09:17 | XMS_ITS | Referral Summary ---
Author Organization [facility] Address [address] [place] [address] Care Team Providers Care Dermatologist Managing Partner Name Role Phone Unavailable Primary Care Provider Unavailabl e Source Comments [facility],non-owned Affiliates and Associated Physician Practices is amultiple site organization consisting of ambulatory clinics and hospital sitesin [place], [place], [place] and [place]. This disclosure is being madepursuant to the Care Everywhere program and may not contain all information available regarding this patient. Last updated 17.[facility] [employer] Social History Tobacco Use Types Packs/Day Years Used Date Smoking Tobacco: Never Assessed Sex and Gender Information Value Date Recorded Sex Assigned at Not on file Gender Identity Not on file Sexual Orientation Not on file Plan of Treatment Not on file
--- OUTSIDE RECORDS SUMMARY | 2024-03-27 09:17 | XMS_ITS | Encounter Summary ---
Author Organization [facility] Address [address] [facility] [address] [place] [address] Care Team Providers Care Refrigerator Mover Name Role Phone Manisha Parker MD Primary Care Provider [phone] Reason for Visit * Reason Comments Wound Check Patient presents tod with a cut on his L pointer finger. Patient states he had stitches removed on 11/10 by his sisters boyfriend who is a nurse. Patient states he noticed on 11/11 that it was opened and bleeding slightly. 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 Gender Identity Not on file Sexual Orientation Not on file documented as of this encounter Last Filed Vital Signs Vital Sign Reading Time Taken Comments Blood Pressure 130/64 11/12/2022 10:37 AM CDT Pulse 83 11/12/2022 10:37 AM CDT Temperature 36.6 ??C (97.9 ??F) 11/12/2022 10:37 AM C DT Respiratory Rate 16 11/12/2022 10:37 AM CDT Oxygen Saturation 97% 11/12/2022 10:37 AM CDT Inhaled Oxygen Concentration - - Weight 79.2 kg (174 lb 9.6 oz) 11/12/2022 10:37 AM CDT Height 180.3 cm (5' 11 ) 11/12/2022 10:37 AM CDT Body Mass Index 24.35 11/12/2022 10:37 AM CDT documented in this encounter Patient Instructions * Patient Instructions* Daisy Fleming NP - 11/12/2022 10:30 AM CDT Infection prevention is a primary consideration for wounds. To assist in prevention, do the following: Wash wound with wound cleanser or plain soap and wate daily or more frequently if it gets dirty. After proper washing, apply triple antibiotic ointment and cover with a clean bandage. Change bandage twice daily or anytime it gets wet or soiled. Observe for signs/symptoms of infection including: Increased redness, swelling, or pain to site. Drainage at site. Redness and inflammation around the wound. Red streaks coming from wound. Fever greater than 101. If any of these signs/symptoms present, call your PCP immediately or go to the Emergency Room. Keep steri strips on until they fall off documented in this encounter Ordered Prescriptions Prescription Sig Dispense Quantity Refills Last Filled Start Date End Date mupirocin (BACTROBAN) 2 % ointmentIndication s:Laceration of left index finger without foreign body with damage to nail, subsequent encounter Apply topically daily 15 g 11/12/2022 documented in this encounter Progress Notes * Daisy Fleming NP - 11/12/2022 10:30 AM CDT Images from the original note were not included. Subjective/Objective Patient ID: Raulito Epstein is a 21 y.o. male. Chief Complaint Wound Check (Patient presents today with a cut on his L pointer finger. Patient states he had stitches removed on 11/10 by his sisters boyfriend who is a nurse. Patient states he noticed on 11/11 that it was opened and bleeding slightly.) Patient presents to [facility] for laceration on left pointer finger. Ten days ago a mandolin fall and cut his finger. At that time, he went to [place] urgent care and received sutures and his finger was glued. He states that 2 days ago, his sister's boyfriend who is the nurse took out his sutures. He states that initially the laceration was closed. However yesterday he hit his finger and thinks that he may have opened his laceration. He states he is noticed a small amount of blood comingfrom wound. He denies any fevers, pain, drainage, or chills. Review of Systems Constitutional: Negative for chills, diaphoresis, fatigue and fever. Respiratory: Negative for chest tightness and shortness of breath. Cardiovascular: Negative for chest pain. Skin: Positive for wound. Psychiatric/Behavioral: Negative for confusion. Physical Exam Vitals reviewed. Constitutional: Appearance: Normal appearance. He is not ill-appearing. HENT: Head: Normocephalic. Mouth/Throat: Pharynx: Oropharynx is clear. Cardiovascular: Rate and Rhythm: Normal rate. Pulmonary: Effort: Pulmonary effort is normal. Musculoskeletal: General: Normal range of motion. Skin: General: Skin is warm and dry. Findings: Laceration present. Comments: Approximately 1 cm laceration on tip of left index finger. Center of laceration poorly approximated. No bleeding or drainage noted. No redness noted. Nontender on palpation. Neurological: Mental Status: He is alert and oriented to person, place, and time. Mental status is at baseline. Psychiatric: Mood and Affect: Mood normal. Behavior: Behavior normal. Thought Content: Thought content normal. Judgment: Judgment normal. Vitals: 11/12/22 1037 BP: 130/64 BP Location: Right arm Patient Position: Sitting Pulse: 83 Resp: 16 Temp: 36.6 ??C (97.9 ??F) SpO2: 97% Weight: 79.2 kg (174 lb 9.6 oz) Height: 180.3 cm (5' 11 ) Assessment/Plan Wound cleaned and Two Steri-Strips applied across wound Apply mupirocin ointment to wound Reviewed signs of wound infection such as redness, drainage, fevers, or chills Keep Steri-Strips on wound until they fall off Return to clinic for follow-up with PCP if wound worsens Diagnoses and all orders for this visit: Laceration of left index finger without foreign body with damage to nail, subsequent encounter (Primary) - mupirocin (BACTROBAN) 2 % ointment; Apply topically daily No results found for this or any previous visit (from the past 4 hour(s)). Patient Education: Disposition Treatment plan including expectations, follow up, and return precautions discussed with patient/parent, verbalizes understanding. Medication dosage, use, and potential adverse reactions discussed with patient/parent. Advised to follow up with PCP if symptoms do not resolve as expected or sooner if condition worsens. Signs/symptoms warranting ER evaluation reviewed. Patient and/or guardian was given an opportunity to ask questions, questions answered. Daisy Fleming NP documented in this encounter Plan of Treatment Not on file documented as of this encounter Visit Diagnoses Diagnosis Laceration of left index finger without foreign body with damage to nail, subsequent encounter- Primary documented in this encounter Historical Medications * This list may reflect changes made after this encounter. albuterol HFA (PROVENTIL HFA,VENTOLIN HFA,PROAIR HFA) 90 mcg/actuation inhaler Inhale 2 puffs every 6 (six) hours as needed for wheezing added in this encounter Care Teams Refrigerator Mover Relationship Specialty Start Date End Date Manisha Parker MD PCP - General 12/03/16 documented as of this encounter
--- OUTSIDE RECORDS SUMMARY | 2024-03-27 09:17 | XMS_ITS | Referral Summary ---
Author Organization [facility] Address [address] [place] [address] Care Team Providers Care Interior Wall Assembler Name Role Phone Manisha Parker MD Primary Care Provider [phone] Allergies No known active allergies Medications albuterol HFA (PROVENTIL HFA,VENTOLIN HFA,PROAIR HFA) 90 mcg/actuation inhaler Inhale 2 puffs every 6 (six) hours as needed for wheezing Active mupirocin (BACTROBAN) 2 % ointmentIndicat ions:Laceration of left index finger without foreign body with damage to nail, subsequent encounter Apply topically daily 15 g 3 Active Active Problems Problem Noted Date Diagnosed Date Increased frequency of urination 12/03/2016 Acne vulgaris 01/18/2015 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 Infectious warts 01/25/2011 Social History Tobacco Use Types Packs/Day Years Used Date Smoking Tobacco: Never Personal Safety Answer Date Recorded Getting School Help Needed Not on file 06/19 Sex and Gender Information Value Date Recorded Sex Assigned at Not on file 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
--- OUTSIDE RECORDS SUMMARY | 2024-03-27 09:17 | XMS_ITS | Patient Health Summary ---
Author Organization [facility] Address [address] [place] [address] Care Team Providers Care Purchasing Buyer Name Role Phone Unavailable Primary Care Provider Unavailabl e Note from [facility],non-owned Affiliates and Associated Physician Practices is amultiple site organization consisting of ambulatory clinics and hospital sitesin [place], [place], [place] and [place]. This disclosure is being madepursuant to the Care Everywhere program and may not contain all information available regarding this patient. Last updated 17.[facility] Social History Tobacco Use Types Packs/Day Years Used Date Smoking Tobacco: Never Assessed Sex and Gender Information Value Date Recorded Sex Assigned at Not on file Gender Identity Not on file Sexual Orientation Not on file Procedures * GROSS EXAM PATHOLOGY(Performed 09/05/2000) Results * GROSS EXAM PATHOLOGY (09/05/2000 8:15 AM CDT) Result CASE NUMBER [id number] [facility] PATH REPORT Comment: ORDERING PHYSICIAN ??MEAGHAN TAI SPECIMEN TYPE ?Tonsils CLINICAL HISTORY ? The patient is a [id number] boy with chronic tonsillitis. GROSS DESCRIPTION ? [...] lw) GROSS DIAGNOSIS ? GROSS DIAGNOSIS ??TONSILS. Sorter Laundry Articles ? Jay Deleon PATHOLOGIST ?Jaison Hicks M.D. ELECTRONICALLY YUNIEL JAISON HICKS MISCELLANEOUS SAMPLES / Unknown 09/05/2000 8:15 AM CDT 09/05/2000 10:39 AM CDT Historical Provider MD LAB - PATHOLOGY/C YTOLOGY ORDERABLES [facility] PATH REPORT
--- OUTSIDE RECORDS SUMMARY | 2024-03-27 09:17 | XMS_ITS | Clinical Summary ---
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 Gender Identity Not on file Sexual Orientation Not on file Obstetrics History Last Filed Vital Signs Vital Sign Reading [...] 11/12/2022 10:37 AM CDT Plan of Treatment Health Maintenance Due Date Last Done Comments Depression Screening 2000 Hepatitis C Screening 2000 Varicella Vaccines (2 of 2 - 2-dose childhood series) 2002 12/27/1999 Regular Well Visit/Exam 18-64 2016 Covid-19 Vaccine ( season) 2023 02/02/2022, 02/23/2021, 06/26/2020, Additional history exists Influenza Vaccine (#1) 2023 , 02/23/2021, 01/29/2020, Additional history exists DTaP/Tdap/Td Vaccine (8 - Td or Tdap) 04/20/2032 04/20/2022, 10/12/2010, 09/28/2004, Additional history exists HPV Vaccines Completed 10/11/2013, 01/06, 11/18/2011 Pneumococcal vaccine <65 Aged Out No longer eligible based on patient's age to complete this topic Insurance CHOICE PLUS Care Teams Assistant Manager Quality Management Relationship Specialty Start Date End Date Manisha Parker MD PCP - General 12/03/16
== END 2024-03-22 12:05 | disposition home or self-care (01) ==
PROVIDERS: PCP Internal Medicine; Visit Provider Surgery
PROC: (CPT 11771; principal; 2024-03-22 09:00)
DX: L05.91 Pilonidal cyst without abscess (principal); J45.909 Unspecified asthma, uncomplicated; Z79.51 Long term (current) use of inhaled steroids; Z98.890 Other specified postprocedural states; Z80.0 Family history of malignant neoplasm of digestive organs; Z82.49 Family history of ischemic heart disease and other diseases of the circulatory system
CPT/HCPCS: 11771; 88305; A9270; J0690; J1100; J1885; J2003; J2004; J2250; J2405; J2704; J3010; J7120

== ENCOUNTER 2024-07-12 08:55 | Outpatient (CLI) | payer BC, SELFPAY ==
--- NOTE | 2024-07-12 08:57 | ECHO_ITS ---
Patient Info Name: Raulito Epstein Age: 23 years : 2000 Gender: Male Ht: 71 in Wt: 170 lbs BSA: 1.97 m2 HR: 85 bpm BP: 115 / 84 mmHg Technical Quality: Good Exam Date: 07/12/2024 9:16 AM Exam Location: Echo Lab Patient Status: Outpatient Admit Date: 07/12/2024 Staff Ordering Physician: She Bravo NP Furniture Finisher Helper: Amada Bautista RDCS Attending Provider: She Bravo NP Exam Type: CA echo doppler color flow Study Info Indications Z82.49 - Family history of ischemic heart disease and other diseases of the circulatory system Complete two-dimensional, color flow and Doppler transthoracic echocardiogram is performed. Summary 1. Complete two-dimensional, color flow and Doppler transthoracic echocardiogram is performed. 2. Left ventricular chamber dimension is normal. 3. Left ventricular systolic function is normal, estimated at 60-65%. 4. The left ventricular diastolic function is normal. 5. E/e' 4 is not elevated. Left Ventricle E/e' 4 is not elevated. Left ventricular chamber dimension is normal. Left ventricular systolic function is normal, estimated at 60-65%. The left ventricular diastolic function is normal. Right Ventricle Right ventricular chamber dimension is normal. Right ventricular systolic function is normal. Left Atria Left atrial chamber dimension is normal. Right Atria Right atrial chamber dimension is normal. Aortic Valve The aortic valve is trileaflet. There is no aortic valve stenosis. There is no aortic valve regurgitation. Pulmonic Valve There is no pulmonic regurgitation. Mitral Valve There is no mitral valve stenosis. There is no mitral valve regurgitation. Tricuspid Valve There is no tricuspid valve regurgitation. Pericardium/Pleural There is no pericardial effusion. Inferior Vena Cava Normal inferior vena cava with >50% collapse upon inspiration consistent with normal right atrial pressure, 5 mmHg. Aorta The aortic root size at the sinus of Valsalva is normal. Left Ventricular Outflow Tract Name Value Normal LVOT 2D LVOT Diameter 2.0 cm LVOT Doppler LVOT Peak Gradient 4 mmHg LVOT Mean Gradient 3 mmHg LVOT VTI 21 cm LVOT VTI/AV VTI Ratio 0.9 LVOT Stroke Volume 66 ml LVOT CO 6.2 l/min LVOT CI 3.2 l/min/m2 Pulmonic Valve Name Value Normal RVOT Doppler RVOT Peak Gradient 2 mmHg PV Doppler PV Peak Gradient 4 mmHg Mitral Valve Name Value Normal MV Doppler MV Decel [place] 741 cm/s2 MV PHT 33 ms MV Area (PHT) 6.6 cm2 4.0-5.0 MV Diastolic Function MV E Peak Velocity 85 cm/s MV A Peak Velocity 71 cm/s MV E/A 1.2 MV Decel Time 114 ms Tricuspid Valve Name Value Normal Estimated PAP/RSVP RA Pressure 5 mmHg <=5 Aorta Name Value Normal Ascending Aorta Ao Root Diameter (MM) 3.2 cm Ao Root Diam Index (MM) 1.6 cm/m2 Aortic Valve Name Value Normal AV Doppler AV Peak Velocity 122 cm/s AV Peak Gradient 6 mmHg AV Mean Gradient 3 mmHg AV VTI 23 cm AV Area (Cont Eq VTI) 2.9 cm2 >=3.0 AV Area (Cont Eq Jonathon) 2.7 cm2 AV Regurgitation 2D LVOT Area 3.2 cm2 Ventricles Name Value Normal LV Dimensions 2D/MM IVS Diastolic Thickness (2D) 0.9 cm 0.6-1.0 IVS Diastole Thickness (MM) 0.9 cm 0.6-1.0 LVID Diastole (2D) 3.7 cm 4.2-5.8 LVID Diastole (MM) 4.7 cm 4.2-5.8 LVIW Diastolic Thickness (2D) 0.8 cm 0.6-1.0 LVIW Diastolic Thickness (MM) 0.7 cm 0.6-1.0 LVID Systole (2D) 2.2 cm 2.5-4.0 LVID Systole (MM) 3.4 cm 2.5-4.0 LVOT Diameter 2.0 cm LV Mass (2D Cubed) 87.76 g 88.00-224.00 LV Mass Index (2D Cubed) 45 g/m2 49-115 Relative Wall Thickness (2D) 0.41 LV Mass (MM Cubed) 119.59 g 88.00-224.00 LV Mass Index (MM Cubed) 61 g/m2 49-115 Relative Wall Thickness (MM) 0.28 LV Fractional Shortening/Ejection Fraction 2D/MM LV Fractional Shortening (2D) 40 % 25-43 LV Fractional Shortening (MM) 28 % 25-43 LV EF (MM Teicholz) 54 % 52-72 LV EF (2D Teicholz) 71 % 52-72 LV Diastolic Volume (4C MOD) 77 ml LV EF (4C MOD) 59 % LV Diastolic Volume (2C MOD) 112 ml LV EF (2C MOD) 67 % LV Diastolic Volume (BP MOD) 92 ml 62-150 LV Diastolic Volume Index (BP MOD) 47 ml/m2 34-74 LV Systolic Volume (BP MOD) 34 ml 21-61 LV Systolic Volume Index (BP MOD) 18 ml/m2 11-31 LV EF (BP MOD) 62 % 52-72 LV Diastolic Length (4C) 8.8 cm LV Systolic Length (4C) 7.7 cm LV Stroke Volume (4C MOD) 45 ml Atria Name Value Normal LA Dimensions LA Dimension (MM) 2.9 cm 3.0-4.1 LA Volume (4C A-L) 31 ml LA Volume (BP A-L) 40 ml RA Dimensions RA Area (4C) 12.2 cm2 <=18.0 Report Signatures
--- OUTSIDE RECORDS SUMMARY | 2024-07-12 09:34 | XMS_ITS | Clinical Summary ---
Author Organization [facility] Address [address] [place] [address] Care Team Providers Care Broker In Charge Name Role Phone Unavailable Primary Care Provider Unavailabl e Source Comments [facility],non-owned Affiliates and Associated Physician Practices is amultiple site organization consisting of ambulatory clinics and hospital sitesin [place], [place], [place] and [place]. This disclosure is being madepursuant to the Care Everywhere program and may not contain all informatio navailable regarding this patient. Last updated 17.[facility] [employer] Social History Tobacco Use Types Packs/Day Years [...] of 3 - 19+ 3-dose series) 2017 COVID-19 VACCINE ( - 2023-2 5 season) 2023 DEPRESSION SCREENING 04/07/2024 INFLUENZA VACCINE (Season Ended) 2024 ZOSTER VACCINE (1 of 2) 2048 HIB VACCINE Aged Out No longer eligi ble based on patient's age to complete this topic MENINGOCOCCAL (Group B) VACC INE SHARED DECISION-MAKING Aged Out No longer eligibl e based on patient's age to complete this topic MENINGOCOCCAL GROUPS A/C/Y/W VACCINE Aged Out No longer eligible b ased on patient's age to complete this topic PNEUMOCOCCAL VACCINE Aged Out No long er eligible based on patient's age to complete this topic Raulito Epstein Personal/Famil y Self 2000
--- OUTSIDE RECORDS SUMMARY | 2024-07-12 09:34 | XMS_ITS | Referral Summary ---
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 Gender Identity Not on file Sexual Orientation Not on file Last Filed Vital Signs Vital Sign Reading Time Taken Comments Blood Pressure 130/64 11/12/2022 10:37 AM CDT Pulse 83 11/12/2022 10:37 AM CDT Temperature 36.6 C (97.9 F) 11/12/2022 10:37 AM CDT Respiratory Rate 16 11/12/2022 10:37 AM CDT Oxygen Saturation 97% 11/12/2022 10:37 AM CDT Inhaled Oxygen Concentration - - Weight 79.2 kg (174 lb 9.6 oz) 11/12/2022 10:37 AM CDT Height 180.3 cm (5' 11 ) 11/12/2022 10:37 AM CDT Body Mass Index 24.35 11/12/2022 10:37 AM CDT Plan of Treatment Not on file Insurance Care Teams Veterinary Toxicologist Relationship Specialty Start Date End Date Manisha Parker MD PCP - General 12/03/16
--- OUTSIDE RECORDS SUMMARY | 2024-07-12 09:34 | XMS_ITS | Clinical Summary ---
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 Gender Identity Not on file Sexual Orientation [...] 02/23/2021, 06/26/2020, Additional history exists Influenza Vaccine (Season Ended) 2024 02/02/2022, 02/23/2021, 01/29/2020, Additional history exists DTaP/Tdap/Td Vaccine (8 - Td or Tdap) 04/20/2032 04/20/2022, 10/12/2010, 09/28/2004, Additional history exists Hepatitis B Screening Completed 06/27/1999 , 04/23/1999, 2000 HPV Vaccines Completed 10/11/2013, 01/06, 11/18/2011 Pneumococcal vaccine <65 Aged Out No longer eligible based on patient's age to complete this topic Insurance CHOICE PLUS [facility] HMO/PPO Address: [facility] [address] [place] [address] Care Teams Crown Assembly Machine Operator Relationship Specialty Start Date End Date Manisha Parker MD PCP - General 12/03/16
== END 2024-07-12 08:56 | disposition home or self-care (01) ==
PROVIDERS: PCP Internal Medicine; Visit Provider Nurse Practitioner
DX: Z82.49 Family history of ischemic heart disease and other diseases of the circulatory system (principal); Z82.79 Family history of other congenital malformations, deformations and chromosomal abnormalities
CPT/HCPCS: 93306

== ENCOUNTER 2024-08-04 09:26 | Outpatient (CLI) | payer BC, SELFPAY ==
--- OUTSIDE RECORDS SUMMARY | 2024-08-04 10:06 | XMS_ITS | Clinical Summary ---
Author Organization [facility] Address [address] [place] [id number] Care Team Providers Care Fuels Engineer Name Role Phone Daryl Jaramillo DO Primary Care Provider [phone]- [phone] Allergies No known active allergies Medications albuterol HFA (PROVENTIL HFA,VENTOLIN HFA,PROAIR HFA) 90 mcg/actuation inhaler Inhale 2 puffs every 6 (six) hours as needed for wheezing Active mupirocin (BACTROBAN) 2 % ointmentIndica tions:Lacerati on of left index finger without foreign body with damage to nail, subsequent encounter Apply topically daily 15 g 11/13/19 23 Active doxycycline (VIBRAMYCIN) 100 mg capsuleIndicat ions:Tick/Vect or-borne Infection Take 1 tablet/capsul e (100 mg total) by mouth every 12 (twelve) hours for 14 days 28 tablet/capsu le 07/28/19 25 025 Active doxycycline (VIBRAMYCIN) 100 mg capsuleIndicat ions:Tick/Vect or-borne Infection Take 1 tablet/capsul e (100 mg total) by mouth every 12 (twelve) hours for 14 days 28 tablet/capsu le 07/28/19 25 025 Discontinued Hospital, Clinic, or Other Facility Administered Medication Ordered Dose Route Frequency Start Date End Date Status lidocaine-EPINEPHrine (XYLOCAINE with EPI) 2 %-1:100,000 injection 1 mLIndications:Administratio n of Local Anesthesia 1 mL OTHER Once 07/27/2024 07/27/2024 End ed Active Problems Problem Noted Date Diagnosed Date Increased frequency of urination 12/03/2016 Acne vulgaris 01/18/2015 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 Gender Identity Not on file Sexual Orientation Not on file Obstetrics History Last Filed Vital Signs Vital Sign Reading Time Taken Comments Blood Pressure 109/72 07/27/2024 1:43 PM CDT Pulse 86 07/27/2024 1:43 PM CDT Temperature 36.6 C (97.9 F) 11/12/2022 10:37 AM CDT Respiratory Rate 16 11/12/2022 10:37 AM CDT Oxygen Saturation 96% 07/27/2024 1:43 PM CDT Inhaled Oxygen Concentration - - Weight [...] on patient's age to complete this topic Procedures Procedure Name Priority Date/Time Associated Diagnosis Comments SURGICAL PATHOLOGY Routine 07/27/2024 12 :00 AM CDT Skin neoplasm from Last 3 Months Results * Surgical pathology (07/27/2024 12:00 AM CDT) Tissue (Skin, shave biopsy) 07/27/2024 07/28/2024 8:49 AM CDT [facility] - 07/30/2024 4:11 PM CDT EPIC results best viewed via link to PDF [facility] [address] [place] [address], [address] [address] [email or web address] Note to Patients: This report may contain a detailed description of human tissue sent by a health care provider to the laboratory for pathologic evaluation. The content of this report is essential for diagnosis and may provide important critical findings. This information may be unfamiliar to patients to review without a medical professional present. It is advised that the patient review this report in the presence of a health care provider who can answer questions and explain the details. FINAL REPORT Patient Information: PATIENT NAME: RAULITO SINGH SEX: M : 2000 (Age: 23) Specimen Information: COLLECTED: 07/27/2024 RECEIVED: 07/28/2024 REPORTED: 07/30/2024 Submitting Physician Information: Candelaria Cummings, ANP [address], [address] [place] [address], DERMATOPATHOLOGY REPORT RESULTS DIAGNOSIS: A. SKIN, LEFT UPPER QUADRANT, SHAVE BIOPSY: ANGIOKERATOMA B. SKIN, LEFT MID BACK, SHAVE BIOPSY: ANGIOKERATOMA /spng By this signature, I attest that the above diagnosis is based upon my personal examination of the slides(and/or other material indicated in the diagnosis). Jeff Hoover MD, PhD Report Electronically Reviewed and Signed Out By Jeff Hoover MD, PhD 07/30/2024 16:11:55 CLINICAL INFORMATION A-B. R/O AK, BCC, DN. SCC, SK SPECIMEN DATA MICROSCOPIC DESCRIPTION: A-B. Dilated blood vessels, filled with erythrocytes, are surrounded by collarettes of epithelium. (D18.01) GROSS DESCRIPTION: A. Received in a formalin-containing bottle is a superficial fragment of pale hameed, finely scaling and semi-translucent skin measuring 0.6 by 0.6 by 0.2 cm. The surgical margin is inked blue. The specimen bears a centrally located, dark brown and scaly papule measuring 0.4 by 0.3 by 0.1 cm. The specimen is sectioned into 2 pieces and submitted entirely in a single cassette. Due to shrinkage, measurements may be different than those at time of procedure. B. Received in a formalin-containing bottle is a superficial fragment of pale hameed, finely scaling and semi-translucent skin measuring 1.1 by 0.5 by 0.2 cm. The surgical margin is inked blue. The specimen bears a centrally located, dark brown, variegated and scaly papule measuring 0.4 by 0.3 by 0.1 cm. The specimen is sectioned into 2 pieces and submitted entirely in a single cassette. Due to shrinkage, measurements may be different than those at time of procedure. sxt/mxf Clerical Data A; 42110 B; 62132 The characteristics of special, immunohistochemical, and immunofluorescence stains and in-situ hybridization tests performed by the [facility] were deemed acceptable in ongoing quality process lead measures and in compliance with regulations drawn from the Clinical Laboratory Improvement Act [id number] (CLIA '88). Control reactions for all stains performed were deemed adequate and appropriate by a pathologist prior to evaluation of patient tissue. Some diagnoses were rendered with the assistance of laboratory-developed tests utilizing analyte-specific reagents; the performance characteristic of these tests were determined by [facility] and are not cleared or approved by the US Food an Drug administration. Laboratory developed test may only be performed in a facility that is certified by the [facility] as a high-complexity laboratory under CLIA '88. These tests are used for clinical purposes and are not investigational. Candelaria Cummings NP LAB PATHOLOGY ORD ERABLES Final Result DERMATOPATHOLOGY CENTER [address] [place] [address] from Last 3 Months Insurance [employer] Care Teams Fuels Engineer Relationship Specialty Start Date End Date Daryl Jaramillo DO [facility] [address] [address] PCP - General Internal Medicine 07/27/24
--- OUTSIDE RECORDS SUMMARY | 2024-08-04 10:06 | XMS_ITS | Clinical Summary ---
Author Organization [facility] Address [address] [place] [address] Care Team Providers Care Construction Foreman Name Role Phone Unavailable Primary Care Provider Unavailabl e Source Comments [facility],non-owned Affiliates and Associated Physician Practices is amultiple site organization consisting of ambulatory clinics and hospital sitesin [place], [place], [place] and [place]. This disclosure is being madepursuant to the Care Everywhere program and may not contain all information available regarding this patient. 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 Gender Identity Not on file Sexual Orientation Not on file Plan of Treatment Health Maintenance Due Date Last Done Comments HIV SCREENING 2013 HPV VACCINE (1 - Male 3-dose series) 2013 HEPATITIS C SCREENING 12/18/2016 DTAP/TDAP/TD VACCINES (1 - Tdap) 2017 HEPATITIS B VACCINE (1 of 3 - 19+ 3-dose series) 2017 COVID-19 VACCINE (1 - 2023-2 5 season) 2023 DEPRESSION SCREENING [...] patient's age to complete this topic Insurance SELF PAY NO INSURANCE Member Subscriber Plan / Payer (Ef fective for All Dates) Name:Raulito Singh Member ID:Not on file Relation to Subscriber:Not on file Name:RAULITO SINGH Subscriber ID:Not on file (Home) Address: [address] [place] [address] Payer ID:Not on file Group ID:Not on file Type:Self Pay Address: [facility]
--- OUTSIDE RECORDS SUMMARY | 2024-08-04 10:06 | XMS_ITS | Referral Summary ---
Author Organization [facility] Address [address] [place] [address] Care Team Providers Care Risk Investigator Name Role Phone Daryl Jaramillo DO Primary Care Provider +1- [phone] Encounters Date Type Department Care Team Description 07/28/2024 Orders Only [facility] [address] [place] [address] Candelaria Cummings NP Skin neoplasm 07/27/2024 1:00 PM CDT Office Visit [facility] Surgery [address] [place] [address] [place] [phone] Candelaria Cummings NP Skin neoplasm (Primary Dx); Nodule of skin of abdomen; Insect bite of abdominal wall, initial encounter from Last 3 Months Allergies No known active allergies Medications albuterol [...] 14 days 28 tablet/capsu le 07/28/19 25 08/10/ 025 Active doxycycline (VIBRAMYCIN) 100 mg capsuleIndicat [...] on file 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 Gender Identity Not on file Sexual Orientation [...] CDT Plan of Treatment Not on file Procedures Procedure Name Priority Date/Time Associated Diagnosis Comments SURGICAL PATHOLOGY Routine 07/27/2024 12 :00 AM CDT Skin neoplasm from Last 3 Months Results * Surgical pathology (07/27/2024 12:00 AM CDT) Tissue (Skin, shave biopsy) 07/27/2024 07/28/2024 8:49 AM CDT [facility] - 07/30/2024 4:11 PM CDT [facility] results best viewed via link to PDF [facility] [address], [place] [address] [email or web address] Note to Patients: [...] REPORTED: 07/30/2024 Submitting Physician Information: Candelaria Cummings, [facility] [address], [address] [place] [address], DERMATOPATHOLOGY REPORT RESULTS DIAGNOSIS: A. SKIN, LEFT UPPER QUADRANT, SHAVE BIOPSY: ANGIOKERATOMA B. SKIN, LEFT MID BACK, SHAVE BIOPSY: ANGIOKERATOMA dh/spng By this signature, I attest that the [...] time of procedure. sxt/mxf Clerical Data A; 25231 B; 26502 The characteristics of special, immunohistochemical, and immunofluorescence stains and in-situ hybridization tests performed by the [facility] were deemed acceptable in ongoing aerospace quality engineer measures and in compliance with regulations drawn from the Clinical Laboratory Improvement Act hx6166 (CLIA '88). Control reactions for all stains performed were deemed adequate and appropriate by a pathologist prior to evaluation of patient tissue. Some diagnoses were rendered with the assistance of laboratory-developed tests utilizing analyte-specific reagents; the performance characteristic of these tests were determined by [facility] and are not cleared or approved by the [place] Food an Drug administration. Laboratory developed test may only be performed in a facility that is certified by the [facility] as a high-complexity laboratory under CLIA '88. These tests are used for clinical purposes and are not investigational. Candelaria Cummings NP LAB PATHOLOGY ORD ERABLES Final Result DERMATOPATHOLOGY CENTER [address] [place] [id number] from Last 3 Months Insurance [facility] HMO/PPO Address: [address] [address] [place] [address] [employer] Care Teams Risk Investigator Relationship Specialty Start Date End Date Daryl Jaramillo DO [address] [place] [address] PCP - General Internal Medicine 07/27/24
--- NOTE | 2024-08-18 13:11 | P.SLEEP_ITS ---
Sleep Study - Home Unattended Date of Study: 08/04/24 Ordering Provider: She Bravo NP Interpreting Provider: Mariah Solis DO Home Sleep Study Type: Watch PAT Height: 1.8 m Weight: 74.936 kg Body Mass Index: 23.0 Neck Circumference (inches): 15 Lamar: 0 Reason for Sleep Study Trouble staying asleep, excessive daytime sleepiness Sleep History The patient is a 23-year-old male that had a sleep study ordered by his primary care for evaluation of sleep apnea. The patient admits to having difficulty staying asleep, excessive daytime sleepiness and interruptions in breathing while asleep. He denies snoring loudly. He does choke or gasp at night. He denies having trouble breathing on his back. He denies morning headaches. He does have a dry or sore mouth / throat in the morning. He denies nocturnal heartburn. He urinates more than 3 times throughout the night. He denies having difficulty falling asleep. He denies having difficulty returning to sleep if he wakes up throughout the night. He denies any hypnotic or sedative use. He denies feeling anxious about sleep. He does feel tired or sleepy during the day. He does feel tired in the morning. He denies having the urge to fall asleep during the day. He denies feeling drowsy while driving. He denies cataplexy, sleep paralysis and hypnagogic/ hypnopompic hallucinations. He does clench or grind his teeth. He denies kicking or jerking his legs excessively. He denies having a restless feeling in his legs. He goes to bed at 10:30 p.m. every night. It takes him 15 minutes to fall asleep. He gets 8 hours and 30 minutes of sleep every night. His sleep is somewhat restorative on his days off. He denies taking any planned naps. He denies dream enactment behavior. He denies sleep walking. He consumes 1-2 cups of caffeinated beverage per day. He consumes 2 alcoholic beverages 1-2 nights per week. He denies tobacco use. He denies exercising on a regular basis. COUNTS INCLUDE 234 BEDS AT THE [facility] Past Medical History Medical History Asthma Surgical History Surgical History History of excision of pilonidal cyst 03/22/[address] Staples Status post incision and drainage pilonidal abscess 11/29/23 Steffen Staples MD Hx of tonsillectomy Family History Family History Father Hypertension Alcoholism Anxiety and depression Grandparent Hypertension Carcinoma of colon, Onset Age: 84 Cancer Alcoholism Heart disease Mother Patient's mother is in good health Sibling Anxiety and depression Social History Social History Smoking status: Never smoker Second hand tobacco smoke exposure: No Alcohol intake: never Drinks per week: 4 Substance use: never Do You Feel Safe in your Home?: Yes Lack of Transportation: No Lack of Food: Never True Current Housing: I Have Housing Concerned About Future Housing: No Difficulty Paying Gas/Electric Bills: No Difficulty Paying for Meds: No Currently Unemployed: No Education: Associate Degree Difficulty w/ Childcare or Family Care: No Living arrangements: with family Gender identity (if verbalized by the patient): Male Spiritual care concerns: No Medications Home Medications ?Medication ?Instructions ?Recorded ?Confirmed ?Type albuterol sulfate 90 mcg/actuation 1 inh inhalation QID PRN DYSPENA 01/19/24 06/17/24 Rx aerosol inhaler #8.5 grams Sleep Procedure The sleep study was completed using [employer] a technically adequate device with seven channels: peripheral arterial tone, actigraphy, body position, snore, respiratory movement, pulse oximetry, sleep staging, and heart rate. Prior to using the device, the patient received verbal and written instructions for its application and was provided with the help desk phone number for additional telephonic instruction with 24-hour availability of qualified personnel to answer questions. The study was scored using CMS guidelines. Sleep Architecture The total recording time is 8 hrs, 25 min. The total sleep time is 7 hrs, 7 min. Sleep latency is 9 minutes. REM latency is 84 minutes. The patient had 9 ep isodes of waking. Sleep architecture shows 31.7% deep sleep, 40.8% light sleep, and (as % Total Sleep Time) showed NREM (Light 40.8%; Deep 31.7%), and a 27.5% stage REM. The patient spent 40.2% of total sleep time in the supine position. Sleep efficiency was 84.55. Respiratory Analysis The overall AHI (pAHI 4%:) is 0.1. The overall AHI (pAHI 3%:) is 1.6. The central AHI is 0.0. The AHI was 0.8 in NREM and 3.6 in REM sleep. The AHI was 1.8 in Supine and 1.4 in Non-supine sleep. Percent of Benson Vega respirations is 0.0. Oximetry Data The oxygen desaturation index (AYSHA 4%:) is 0.1. The mean saturation is 95%, and the lowest saturation is 93%. Time spent with saturation < 88% is 0.0 minutes. Snoring Profile Snoring average intensity is 40 dB. The patient snored above 45 decibels for 4.4 minutes, 1.0% of sleep time. Cardiac Profile The average pulse rate is 77 beats per minutes. The lowest pulse rate is 55 bpm. The highest pulse rate reported is 123 bpm. Atrial fibrillation was not de tected. Premature beats occur <0.1 per minute. Assessment and Plan Assessment and Plan (1) Sleep disturbance: Code(s): G47.9 - Sleep disorder, unspecified Status: Acute Assessment and Plan: The patient had an overall AHI of 0.1 with desaturation down to 93%. This is not consistent with sleep disordered breathing. If there is further concern for a sleep disorder, I recommend the patient have a split study with the use of a hypnotic to ensure we obtain enough sleep data. Data The data obtained during this sleep study is adequate for interpretation. Certification This sleep study has been reviewed by a board certified sleep medicine physician.
[2024-08-18 13:16] VITALS: BMI 23.0
== END 2024-08-05 10:10 | disposition home or self-care (01) ==
PROVIDERS: PCP Internal Medicine; Visit Provider Nurse Practitioner
DX: G47.9 Sleep disorder, unspecified (principal); R35.1 Nocturia
CPT/HCPCS: 95800